=== PATIENT | female | born 1990 | race Caucasian/White ===

== ENCOUNTER 2020-12-19 17:55 | Outpatient (CLI) | payer OTHER ==
[2020-12-19 19:12] VITALS: BP 122/84; PULSE 105; RESP 16; TEMP 98.6
--- NOTE | 2020-12-19 19:18 | P.MSEPDOC ---
Presenting Problems - Arrival Data Date of Arrival on Unit: 12/19/20 Time of Arrival on Unit: 17:55 Mode of Transport: Ambulatory - Complaint OB-Reason for Admission/Chief Complaint: Rule Out SROM Comment: gush fluid 10am Medical History - Information : 1 Para: 0 Term: 0 : 0 Abortions: Spontaneous or Elective: 0 Number of Living Children: 0 - Gestational Age Gestational Age by ERAN (wks/days): 39 Weeks and 1 Days Review of Systems - Review of Systems Constitutional: No problems Breast: No problems ENT: No problems Cardiovascular: No problems Respiratory: No problems Gastrointestinal: No problems Genitourinary: No problems Musculoskeletal: No problems Neurological: No problems Skin: No problems Vital Signs - Temperature Temperature: 98.6 F Temperature Source: Temporal Artery Scan - Pulse Brachial Pulse Rate: 105 Pulse Assessment Method: Automatic Cuff - Respirations Respiratory Rate: 16 Oxygen Delivery Method: Room Air O2 Sat by Pulse Oximetry: 97 - Blood Pressure Right Arm Blood Pressure: 122/84 Blood Pressure Mean: 96 Blood Pressure Source: Automatic Cuff Medical Screen Scoring - Cervical Exam Dilation (cm): 3.5 Effacement (%): 50 Station: -2 Membranes: Intact - Uterine Contractions Frequency From (mins): 2 Frequency To (mins): 5 Duration From (seconds): 40 Duration To (seconds): 90 Intensity: Mild Resting: Soft to palpation - Assessment - Baby A Baseline FHR: 130 Heart Rate - NICHD Category: Category I (Normal) NST: Reactive Physician Notification - Physician Notified Physician Notified Date: 12/19/20 Physician Notified Time: 18:47 Physician: Biju Moore - Notification Comment Comment: monitor serial blood pressures for 30 more minutes, do not recheck cervix, may be discharged to home, keep scheduled induction appt Sunday Maternal Triage Index - Maternal Triage Index Presenting for scheduled procedure w/no complaint: No - Stat/Priority 1 Stat Priority 1: No - Urgent/Priority 2 Urgent Priority 2: No - Prompt/Priority 3 Prompt Priority 3: No - Non-Urgent/Priority 4 Non-Urgent Priority 4: Yes Criteria Met for Priority 4: 39 weeks, rule out rupture, amnisure negative Disposition - Disposition OB Disposition: Triage, Discharge to home, Written follow up instructions reviewed Discharge Date: 12/19/20 Discharge Time: 19:02 I agree with the RN Medical Screening Exam: Yes Case reviewed; plan agreed upon as documented in EMR&OBIX.: Yes Diagnosis: FALSE LABOR AT OR AFTER 37 COMPLETED WEEKS OF GESTATION (Patient presented to labor and delivery with complaints of gush of fluid this morning. Amnio sure evaluation is negative. Cervix is unchanged from the office and heart tones are reactive. At this time there is no evidence of rupture of membranes or labor. There is no evidence of maternal compromise. A she was given instructions and indications to return to labor and delivery.)
== END 2020-12-19 19:00 ==
LOC: FBPOP 17:55
PROVIDERS: ATTEND Obstetrics & Gynecology
DX: O47.1 False labor at or after 37 completed weeks of gestation (principal); Z3A.39 39 weeks gestation of pregnancy
CPT/HCPCS: 59025; 84112; G0463; 99213

== ENCOUNTER 2020-12-22 06:02 | Inpatient (IN) | payer OTHER ==
[2020-12-22] MEDS ORDERED: OXYTOCIN 10 UNIT/ML 1 ML VIAL IM PRN (06:15)
[2020-12-22] MEDS ORDERED: CARBOPROST TROMETHAMINE 250 MCG/ML 1 ML AMP IM PRN (06:15)
[2020-12-22] MEDS ORDERED: TERBUTALINE 1 MG/ML VIAL SQ PRN (06:15)
[2020-12-22] MEDS ORDERED: LIDOCAINE 0.5% (PF) 5 MG/ML (50 ML SDV) SQ PRN (06:15)
[2020-12-22] MEDS ORDERED: OXYTOCIN 30 UNITS/500 ML NS 30 UNIT in SALINE 1 500ML.BAG IV SCH ×2 (06:15→18:15)
[2020-12-22] MEDS ORDERED: METHYLERGONOVINE 0.2 MG/ML 1 ML AMP IM PRN (06:15)
[2020-12-22 06:53] LABS: Basophils % (A) 0 %; Eosinophils # (A) 0.1 k/uL (0-0.7); Eosinophils % (A) 1 %; HCT 34.2 % (34.0-46.0); HGB 11.4 gm/dL (11.4-16.0); Lymphocytes # (A) 1.4 k/uL (1.0-4.8); Lymphocytes % (A) 14 %; MCH 31.9 pg (25.0-35.0); MCHC 33.4 g/dL (31.0-37.0); MCV 95.6 fL (80.0-100.0); Mean Platelet Volume 7.3; Monocytes # (A) 0.5 k/uL (0-1.0); Monocytes % (A) 5 %; Neutrophils # (A) 8.2 k/uL (1.3-7.7); Neutrophils % (A) 79 %; Platelet Count 327 k/uL (150-450); RBC 3.58 m/uL (3.80-5.40); RDW 13.6 % (11.5-15.5); WBC 10.4 k/uL (3.8-10.6)
[2020-12-22] MEDS: LACTATED RINGERS 1,000 ML IV SCH ×3 (07:00→16:51)
[2020-12-22] MEDS ORDERED: fentaNYL (PF) 50 MCG/ML 5 ML AMP ONE (10:42)
[2020-12-22] MEDS ORDERED: PHENYLEPHRINE-0.9% NACL SYG 1,000 MCG/10 ML SYRINGE ONE (10:42)
[2020-12-22] MEDS ORDERED: SODIUM CHLORIDE 0.9% 100 ML BAG ONE (10:42)
[2020-12-22] MEDS ORDERED: ROPIVACAINE 5MG/ML 20ML VIAL ONE (10:42)
[2020-12-22] MEDS ORDERED: ACETAMINOPHEN TAB 325 MG TAB PO PRN (18:14)
[2020-12-22] MEDS ORDERED: ZOLPIDEM 5 MG TAB PO PRN (18:14)
[2020-12-22] MEDS ORDERED: diphenhydrAMINE 50 MG CAP PO PRN (18:14)
[2020-12-22] MEDS ORDERED: BENZOCAINE/MENTHOL SPRAY 1 GM/SPRAY AEROSOL TOPICAL PRN (18:14)
[2020-12-22] MEDS ORDERED: diphenhydrAMINE 50 MG/ML 1 ML VIAL IVP PRN ×2 (18:14)
[2020-12-22] MEDS ORDERED: LANOLIN CREAM 5 GM TUBE TOPICAL PRN (18:14)
[2020-12-22] MEDS ORDERED: SIMETHICONE 80 MG CHEWABLE PO PRN (18:14)
[2020-12-22] MEDS ORDERED: diphenhydrAMINE 25 MG CAP PO PRN (18:14)
[2020-12-22] MEDS ORDERED: HYDROCORTISONE 2.5% RECTAL CREAM 30 GM TUBE RECTAL PRN (18:14)
--- NOTE | 2020-12-22 18:17 | P.HPOB ---
History of Present Illness H&P Date: 12/22/20 Chief Complaint: Induction of labor 30-year-old presents at 39 weeks and 4 days for induction of labor. Her cervix is 3-4 centers dilated, 80% effaced, and -1 station. She is melva irregularly. heart tones 110 with moderate variability and reactive. Review of Systems All systems: negative Constitutional: Denies chills, Denies fever Eyes: denies blurred vision, denies pain Ears, nose, mouth and throat: Denies headache, Denies sore throat Cardiovascular: Denies chest pain, Denies shortness of breath Respiratory: Denies cough Gastrointestinal: Denies abdominal pain, Denies diarrhea, Denies nausea, Denies vomiting Genitourinary: Denies dysuria, Denies hematuria Musculoskeletal: Denies myalgias Integumentary: Denies pruritus, Denies rash Neurological: Denies numbness, Denies weakness Psychiatric: Denies anxiety, Denies depression Endocrine: Denies fatigue, Denies weight change Past Medical History Additional Past Medical History / Comment(s): hip surgery after . Obstetric history: Blood type is A+, antibodies negative, rubella immune, hepatitis B negative, GBS negative, HIV nonreactive History of Any Multi-Drug Resistant Organisms: None Reported Additional Past Surgical History / Comment(s): hand surgery, gullbladder removed, wisdom teeth removed Past Anesthesia/Blood Transfusion Reactions: No Reported Reaction Past Psychological History: Anxiety, Depression Smoking Status: Former smoker Additional Past Alcohol Use History / Comment(s): quit before Past Drug Use History: None Reported - Past Family History Mother Family Medical History: Diabetes Mellitus, Hypertension Medications and Allergies Home Medications Medication Instructions Recorded Confirmed Type Sertraline [Zoloft] 1 tab PO DAILY 12/19/20 12/22/20 History Pnv,Calcium 72/Iron/Folic Acid 1 tab PO DAILY 12/22/20 12/22/20 History [ Plus Tablet] Allergies Allergy/AdvReac Type Severity Reaction Status Date / Time No Known Allergies Allergy Verified 12/22/20 06:12 Exam Osteopathic Statement: *. No significant issues noted on an osteopathic structural exam other than those noted in the History and Physical/Consult. Vital Signs Temp Pulse Resp BP Pulse Ox 12/22/20 06:17 97.5 F L 99 16 122/76 98 Intake and Output 12/22/20 12/22/20 12/22/20 06:59 14:59 22:59 Other: Weight 71.668 kg Heart: Regular rate and rhythm Lungs: Clear to auscultation bilaterally Abdomen: Soft, nontender Extremities: Negative Homans sign Results Result Diagrams: 12/22/20 06:44 Abnormal Lab Results - Last 24 Hours (Table) 12/22/20 Range/Units 06:44 RBC 3.58 L (3.80-5.40) m/uL Neutrophils # 8.2 H (1.3-7.7) k/uL Assessment and Plan (1) Elective induction of labor planned Current Visit: Yes Status: Acute Code(s): [id number] - SNOMED Code(s): 444257021 Plan: 1. Induction of labor with amniotomy and Pitocin 2. Anticipate normal vaginal delivery
--- NOTE | 2020-12-22 18:19 | P.PROBDLV ---
Vaginal Delivery Note - . Vaginal Delivery Note: 30-year-old presents at 39 weeks and 4 days for induction of labor. Her cervix is 3-4 centers dilated, 80% effaced, and -1 station. She is melva irregularly. heart tones 110 with moderate variability and reactive. Pitocin was started and amniotomy was performed at 6:59 AM, clear fluid noted. When she was uncomfortable she did get an epidural. Her cervix was completely dilated at 1715. She pushed, and delivered a viable female over intact perineum under epidural anesthesia at 1759. Head delivered OA, anterior shoulder delivered gentle downward guidance followed by posterior shoulder and rest of body. Nose and mouth bulb suctioned, cord clamped and cut, placed on mother's abdomen. Apgars 8, 9, 8 lbs. 1 oz. Placenta delivered spontaneously, intact with three-vessel cord at 1801. Vagina, cervix, perineum inspected. Second-degree midline laceration was repaired with 3-0 Vicryl in 2-0 Vicryl. Estimated blood loss 200 mL. Mother and baby in stable condition.
[2020-12-22] MEDS: SENNOSIDES-DOCUSATE SODIUM 1 EACH TAB PO SCH (19:49)
[2020-12-22] MEDS: IBUPROFEN 600 MG TAB PO PRN (19:49)
[2020-12-23] MEDS: SENNOSIDES-DOCUSATE SODIUM 1 EACH TAB PO SCH (08:09)
[2020-12-23] MEDS: IBUPROFEN 600 MG TAB PO PRN ×2 (08:09→14:56)
[2020-12-23 08:12] LABS: Basophils % (A) 0 %; Eosinophils # (A) 0.1 k/uL (0-0.7); Eosinophils % (A) 1 %; HCT 37.7 % (34.0-46.0); HGB 12.1 gm/dL (11.4-16.0); Lymphocytes # (A) 1.7 k/uL (1.0-4.8); Lymphocytes % (A) 13 %; MCH 31.2 pg (25.0-35.0); MCHC 32.2 g/dL (31.0-37.0); MCV 96.7 fL (80.0-100.0); Mean Platelet Volume 7.6; Monocytes # (A) 0.6 k/uL (0-1.0); Monocytes % (A) 5 %; Neutrophils # (A) 10.7 k/uL (1.3-7.7); Neutrophils % (A) 80 %; Platelet Count 343 k/uL (150-450); RBC 3.89 m/uL (3.80-5.40); RDW 13.7 % (11.5-15.5); WBC 13.4 k/uL (3.8-10.6)
[2020-12-23] MEDS ORDERED: SERTRALINE 50 MG TAB PO SCH (09:00)
--- NOTE | 2020-12-23 09:24 | P.DS ---
Providers Date of admission: 12/22/20 06:02 Expected date of discharge: 12/23/20 Attending physician: Tonya Cortez Primary care physician: Stated None - Discharge Diagnosis(es) (1) Elective induction of labor planned Current Visit: Yes Status: Resolved (2) Normal vaginal delivery Current Visit: Yes Status: Acute Hospital Course: Patient presented for induction of labor. She underwent a normal vaginal delivery. course was uncomplicated. She denies nausea, vomiting, ch est pain, shortness of breath or any calf pain. Patient will be discharged home day #1 in stable condition to follow-up with me in 6 weeks. Plan - Discharge Summary Discharge Rx Participant: Yes New Discharge Prescriptions: New RX: Ibuprofen [Motrin] 600 mg PO Q6HR PRN #30 tab PRN Reason: Mild Pain (Scale 1 To 3) No Action Sertraline [Zoloft] 1 tab PO DAILY Pnv,Calcium 72/Iron/Folic Acid [ Plus Tablet] 1 tab PO DAILY Discharge Medication List Sertraline [Zoloft] 1 tab PO DAILY 12/19/20 [History] Pnv,Calcium 72/Iron/Folic Acid [ Plus Tablet] 1 tab PO DAILY 12/22/20 [History] RX: Ibuprofen [Motrin] 600 mg PO Q6HR PRN #30 tab 12/23/20 [Rx] Follow up Appointment(s)/Referral(s): Tonya Cortez DO [Doctor of Osteopathic Medicine] - 02/02/21 10:45 am Discharge Disposition: HOME SELF-CARE
[2020-12-23 16:48] VITALS: BP 116/78; PULSE 80; RESP 16; TEMP 98.3
== END 2020-12-23 18:48 | disposition home or self-care (01) | DRG 807 ==
LOC: 4FBP 06:02
PROVIDERS: ADMIT Obstetrics & Gynecology; ATTEND Obstetrics & Gynecology
PROC: 10E0XZZ Delivery of Products of Conception, External Approach (ICD-10-PCS; principal; 2020-12-22)
PROC: 0KQM0ZZ Repair Perineum Muscle, Open Approach (ICD-10-PCS; 2020-12-22)
PROC: 10907ZC Drainage of Amniotic Fluid, Therapeutic from Products of Conception, Via Natural or Artificial Opening (ICD-10-PCS; 2020-12-22)
DX: O70.1 Second degree perineal laceration during delivery (principal); Z37.0 Single live birth; Z3A.39 39 weeks gestation of pregnancy; Z87.891 Personal history of nicotine dependence; O99.344 Other mental disorders complicating childbirth; F32.9 Major depressive disorder, single episode, unspecified; F41.9 Anxiety disorder, unspecified; Z83.3 Family history of diabetes mellitus; Z82.49 Family history of ischemic heart disease and other diseases of the circulatory system
CPT/HCPCS: 85025; 86850; 86900; 86901

== ENCOUNTER → 2022-02-24 | Outpatient (CLI) | payer OTHER ==
--- NOTE | 2022-02-24 17:32 | US ---
EXAMINATION TYPE: Transabdominal DATE OF EXAM: 02/24/2022 4:00 PM COMPARISON: NONE CLINICAL HISTORY: Z36.89 ENCOUNTER FOR OTHER SPECIFIED SCR. Confirm dates EXAM PERFORMED: Transabdominal (TA) EXAM MEASUREMENTS: GESTATIONAL AGE / DATING Physician Established: Not yet established Dates by LMP: (11 weeks/2 days) EDC: 09/13/22 Dates by First Scan: No previous this is first scan Dates by Current Scan for: (11 weeks/1 days) EDC: 09/14/22 MATERNAL ANATOMY Uterus: 11.6 x 7.1 x 9.5cm Right Ovary: 3.1 x 2.0 x 1.8cm Left Ovary: 3.1 x 2.3 x 3.3cm Post CDS / Adnexa: wnl Presence of free fluid: no GESTATION / SURVEY CRL: 4.3cm (11 weeks/1 days) Yolk Sac (normal less than 6mm): 0.5cm Heart Rate: 163 bpm Rhythm: Normal IUP: Viable IUP Date of LMP: 12/07/21 Beta HcG (if available): Not available at this time IMPRESSION: Single live intrauterine with ultrasound age of 11 weeks 1 day.
== END | disposition home or self-care (01) ==
LOC: RADUSWWP 15:38
PROVIDERS: ATTEND Obstetrics & Gynecology
DX: Z36.89 Encounter for other specified antenatal screening (principal); Z3A.11 11 weeks gestation of pregnancy
CPT/HCPCS: 76801

== ENCOUNTER 2022-09-07 06:00 | Inpatient (IN) | payer OTHER ==
[2022-09-07] MEDS ORDERED: OXYTOCIN 10 UNIT/ML 1 ML VIAL IM PRN (06:27)
[2022-09-07] MEDS ORDERED: TERBUTALINE 1 MG/ML VIAL SQ PRN (06:27)
[2022-09-07] MEDS ORDERED: CARBOPROST TROMETHAMINE 250 MCG/ML 1 ML AMP IM PRN (06:27)
[2022-09-07] MEDS ORDERED: miSOPROStoL 200 MCG TAB PO PRN (06:27)
[2022-09-07] MEDS ORDERED: LIDOCAINE 0.5% (PF) 5 MG/ML (50 ML SDV) SQ PRN (06:27)
[2022-09-07] MEDS ORDERED: METHYLERGONOVINE 0.2 MG/ML 1 ML AMP IM PRN (06:27)
[2022-09-07] MEDS ORDERED: TRANEXAMIC 1,000 MG/100ML-NACL 1,000 MG in EMPTY BAG 1 BAG IV PRN (06:27)
[2022-09-07] MEDS ORDERED: OXYTOCIN 30 UNITS/500 ML NS 30 UNIT in SALINE 1 500ML.BAG IV SCH (06:30)
[2022-09-07] MEDS: LACTATED RINGERS 1,000 ML IV SCH ×4 (06:49→19:45)
[2022-09-07 06:56] LABS: Basophils % (A) 0 %; Eosinophils # (A) 0.1 k/uL (0-0.7); Eosinophils % (A) 1 %; HCT 35.9 % (34.0-46.0); HGB 12.2 gm/dL (11.4-16.0); Lymphocytes # (A) 2.1 k/uL (1.0-4.8); Lymphocytes % (A) 22 %; MCH 31.2 pg (25.0-35.0); MCV 91.7 fL (80.0-100.0); Mean Platelet Volume 7.5; Monocytes # (A) 0.6 k/uL (0-1.0); Monocytes % (A) 6 %; Neutrophils # (A) 6.5 k/uL (1.3-7.7); Neutrophils % (A) 69 %; Platelet Count 283 k/uL (150-450); RBC 3.91 m/uL (3.80-5.40); RDW 14.5 % (11.5-15.5); WBC 9.5 k/uL (3.8-10.6)
--- NOTE | 2022-09-07 07:23 | P.HPOB ---
History of Present Illness H&P Date: 09/07/22 Chief Complaint: Induction of labor 31-year-old presents at 39 weeks and 1 day for induction of labor. She is melva every few minutes. heart tones are 135 with moderate variability and reactive. Her cervix is 1-2 cm dilated, 70% effaced, and -2 station. Review of Systems All systems: negative Constitutional: Denies chills, Denies fever Eyes: denies blurred vision, denies pain Ears, nose, mouth and throat: Denies headache, Denies sore throat Cardiovascular: Denies chest pain, Denies shortness of breath Respiratory: Denies cough Gastrointestinal: Denies abdominal pain, Denies diarrhea, Denies nausea, Denies vomiting Genitourinary: Denies dysuria, Denies hematuria Musculoskeletal: Denies myalgias Integumentary: Denies pruritus, Denies rash Neurological: Denies numbness, Denies weakness Psychiatric: Denies anxiety, Denies depression Endocrine: Denies fatigue, Denies weight change Past Medical History Additional Past Medical History / Comment(s): hip surgery after . Obstetric history: Blood type is A+, antibodies negative, rubella immune, hepatitis B negative, GBS negative, HIV nonreactive History of Any Multi-Drug Resistant Organisms: None Reported Additional Past Surgical History / Comment(s): hand surgery, gullbladder removed, wisdom teeth removed Past Anesthesia/Blood Transfusion Reactions: No Reported Reaction Past Psychological History: Anxiety, Depression Smoking Status: Former smoker Additional Past Alcohol Use History / Comment(s): quit before Past Drug Use History: None Reported - Past Family History Mother Family Medical History: Diabetes Mellitus, Hypertension Medications and Allergies Home Medications Medication Instructions Recorded Confirmed Type Sertraline [Zoloft] 1 tab PO DAILY 12/19/20 12/22/20 History Vit No.180/Iron/Folic 1 tab PO DAILY 12/22/20 12/22/20 History [ Plus Tablet] Ibuprofen [Motrin] 600 mg PO Q6HR PRN #30 tab 12/23/20 Rx Allergies Allergy/AdvReac Type Severity Reaction Status Date / Time No Known Allergies Allergy Verified 12/22/20 06:12 Exam Osteopathic Statement: *. No significant issues noted on an osteopathic structural exam other than those noted in the History and Physical/Consult. Intake and Output 09/06/22 09/07/2209/07/23 22:59 06:59 14:59 Other: Weight 72.575 kg Heart: Regular rate and rhythm Lungs: Clear to auscultation bilaterally Abdomen: Soft, nontender Extremities: Negative Homans sign Results Result Diagrams: 09/07/22 06:25 Assessment and Plan (1) Elective induction of labor planned Current Visit: No Status: Acute Code(s): [id number] - SNOMED Code(s): 379351 005 (2) 39 weeks gestation of Current Visit: Yes Status: Acute Code(s): Z3A.39 - 39 WEEKS GESTATION OF SNOMED Code(s): 88868131 Plan: 1. Induction of labor with amniotomy and Pitocin 2. Anticipate normal vaginal delivery
[2022-09-07] MEDS ORDERED: HYDROmorphone 1 MG/ML 1 ML SYRINGE IM PRN (08:00)
[2022-09-07] MEDS ORDERED: SODIUM CHLORIDE 0.9% 100 ML BAG ONE (10:53)
[2022-09-07] MEDS ORDERED: fentaNYL (PF) 50 MCG/ML 5 ML AMP ONE (10:53)
[2022-09-07] MEDS ORDERED: ROPIVACAINE 5 MG/ML 20 ML AMPULE ONE (10:53)
[2022-09-07] MEDS ORDERED: CALCIUM CARBONATE 500 MG CHEWABLE PO PRN (19:51)
--- NOTE | 2022-09-08 02:21 | P.PROBDLV ---
Vaginal Delivery Note - . Vaginal Delivery Note: 31-year-old presents at 39 weeks and 1 day for induction of labor. She is melva every few minutes. heart tones are 135 with moderate variability and reactive. Her cervix is 1-2 cm dilated, 70% effaced, and -2 station. Pitocin augmentation was started and amniotomy performed at 7:11 AM on 09/07/2022, clear fluid noted. When she was 3 cm dilated she was uncomfortable and got an epidural. Her cervix was completely dilated on 09/08/2022 at 1:50 A M. She pushed, delivered a viable female over intact perineum under epidural anesthesia at 1:53 AM. Head delivered OA, nuchal cord 1 easily reduced, anterior shoulder delivered gentle downward guidance followed by posterior shoulder and rest of body. Nose and mouth bulb suctioned, cord clamped and cut, placed on mother's abdomen. Apgars 8, 9, weight 8 lbs. 6 oz. Placenta delivered spontaneously, intact with three-vessel cord at 1:56 AM. Vagina, cervix, perineum inspected. Second degree midline laceration and bilateral labial lacerations were repaired with 3-0 Vicryl. Estimated blood loss 200 mL. Mother and baby in stable condition.
[2022-09-08] MEDS ORDERED: ZOLPIDEM 5 MG TAB PO PRN (02:22)
[2022-09-08] MEDS ORDERED: HYDROCORTISONE 2.5% RECTAL CREAM 30 GM TUBE RECTAL PRN (02:22)
[2022-09-08] MEDS ORDERED: diphenhydrAMINE 50 MG CAP PO PRN (02:22)
[2022-09-08] MEDS ORDERED: diphenhydrAMINE 25 MG CAP PO PRN (02:22)
[2022-09-08] MEDS ORDERED: diphenhydrAMINE 50 MG/ML 1 ML VIAL IVP PRN ×2 (02:22)
[2022-09-08] MEDS ORDERED: SIMETHICONE 80 MG CHEWABLE PO PRN (02:22)
[2022-09-08] MEDS ORDERED: BENZOCAINE/MENTHOL SPRAY 1 GM/SPRAY AEROSOL TOPICAL PRN (02:22)
[2022-09-08] MEDS ORDERED: LANOLIN CREAM 5 GM TUBE TOPICAL PRN (02:22)
[2022-09-08] MEDS ORDERED: OXYTOCIN 30 UNITS/500 ML NS 30 UNIT in SALINE 1 500ML.BAG IV SCH (02:30)
[2022-09-08] MEDS: SENNOSIDES-DOCUSATE SODIUM 1 EACH TAB PO SCH ×2 (08:43→19:46)
[2022-09-08] MEDS: IBUPROFEN 600 MG TAB PO PRN ×3 (08:44→23:37)
[2022-09-08] MEDS: ACETAMINOPHEN TAB 325 MG TAB PO PRN ×2 (10:57→19:45)
[2022-09-09] MEDS: ACETAMINOPHEN TAB 325 MG TAB PO PRN (06:37)
[2022-09-09 07:43] LABS: Basophils % (A) 0 %; Eosinophils # (A) 0.2 k/uL (0-0.7); Eosinophils % (A) 1 %; HCT 31.9 % (34.0-46.0); HGB 10.5 gm/dL (11.4-16.0); Lymphocytes # (A) 1.8 k/uL (1.0-4.8); Lymphocytes % (A) 16 %; MCH 31.2 pg (25.0-35.0); MCHC 33.1 g/dL (31.0-37.0); MCV 94.4 fL (80.0-100.0); Mean Platelet Volume 7.8; Monocytes # (A) 0.4 k/uL (0-1.0); Monocytes % (A) 4 %; Neutrophils # (A) 8.9 k/uL (1.3-7.7); Neutrophils % (A) 78 %; Platelet Count 241 k/uL (150-450); RBC 3.38 m/uL (3.80-5.40); RDW 14.5 % (11.5-15.5); WBC 11.4 k/uL (3.8-10.6)
[2022-09-09 08:45] VITALS: BP 126/81; PULSE 85; RESP 16; TEMP 98.1
[2022-09-09] MEDS: IBUPROFEN 600 MG TAB PO PRN (08:54)
--- NOTE | 2022-09-09 11:23 | P.DS ---
Providers Date of admission: 09/07/22 06:04 Expected date of discharge: 09/09/22 Attending physician: Tonya Cortez Primary care physician: Stated None - Discharge Diagnosis(es) (1) Elective induction of labor planned Current Visit: No Status: Resolved (2) 39 weeks gestation of Current Visit: Yes Status: Resolved (3) Normal vaginal delivery Current Visit: No Status: Acute Hospital Course: Patient presented for induction of labor at 39 weeks. She underwent a normal vaginal delivery. course was uneventful. She denies nausea, vomiting, chest pain, shortness of breath or calf pain. Patient will be discharged home day #1 in stable condition to follow-up with me in 6 weeks. Plan - Discharge Summary New Discharge Prescriptions: New Ibuprofen [Motrin] 600 mg PO Q6HR PRN #30 tab PRN Reason: Mild Pain Or Fever >= 100.5 No Action Sertraline [Zoloft] 1 tab PO DAILY Vit No.180/Iron/Folic [ Plus Tablet] 1 tab PO DAILY Ibuprofen [Motrin] 600 mg PO Q6HR PRN #30 tab PRN Reason: Mild Pain (Scale 1 To 3) Discharge Medication List Sertraline [Zoloft] 1 tab PO DAILY 12/19/20 [History] Vit No.180/Iron/Folic [ Plus Tablet] 1 tab PO DAILY 12/22/20 [History] Ibuprofen [Motrin] 600 mg PO Q6HR PRN #30 tab 12/23/20 [Rx] Ibuprofen [Motrin] 600 mg PO Q6HR PRN #30 tab 09/09/22 [Rx] Follow up Appointment(s)/Referral(s): Tonya Cortez DO [Doctor of Osteopathic Medicine] - 10/17/22 3:45 pm Discharge Disposition: HOME SELF-CARE
== END 2022-09-09 12:30 | disposition home or self-care (01) | DRG 560 ==
LOC: 4FBP 06:04
PROVIDERS: ADMIT Obstetrics & Gynecology; ATTEND Obstetrics & Gynecology
PROC: 10907ZC Drainage of Amniotic Fluid, Therapeutic from Products of Conception, Via Natural or Artificial Opening (ICD-10-PCS; 2022-09-07)
PROC: 3E033VJ Introduction of Other Hormone into Peripheral Vein, Percutaneous Approach (ICD-10-PCS; 2022-09-07)
PROC: 10E0XZZ Delivery of Products of Conception, External Approach (ICD-10-PCS; principal; 2022-09-08)
PROC: 0KQM0ZZ Repair Perineum Muscle, Open Approach (ICD-10-PCS; 2022-09-08)
DX: O69.81X0 Labor and delivery complicated by cord around neck, without compression, not applicable or unspecified (principal); O70.1 Second degree perineal laceration during delivery; Z37.0 Single live birth; Z3A.39 39 weeks gestation of pregnancy; Z82.49 Family history of ischemic heart disease and other diseases of the circulatory system; Z83.3 Family history of diabetes mellitus; Z87.891 Personal history of nicotine dependence
CPT/HCPCS: 85025; 86850; 86900; 86901